=== PATIENT | female | born 1935 | race Caucasian/White ===

== ENCOUNTER 2017-01-03 09:33 | Inpatient (IN) | payer MEDICARE ==
[~2017-01-03] VITALS: Ht 165.1 cm; Wt 50.0 kg
[2017-01-03] MEDS ORDERED: FENTANYL PF 250 MCG/5ML ONE (12:58)
[2017-01-03] MEDS ORDERED: LACTATED RINGERS 1,000 ML IV SCH ×2 (13:58→14:03)
[2017-01-03] MEDS ORDERED: LIDOCAINE 1%, 2ML SQ PRN (14:00)
[2017-01-03] MEDS ORDERED: TRANEXAMIC ACID 100 MG/ML, 10ML ONE (14:05)
[2017-01-03] MEDS ORDERED: BUPIVACAINE/PF-EPI 0.25% 1:200K ONE (14:07)
[2017-01-03] MEDS ORDERED: LABETALOL 5MG/ML, 20ML IV PRN (14:30)
[2017-01-03] MEDS ORDERED: MEPERIDINE/PF 25MG/0.5ML IVPush PRN (14:30)
[2017-01-03] MEDS ORDERED: PROMETHAZINE 25 MG/ML, 1ML IV PRN (14:30)
[2017-01-03] MEDS ORDERED: ONDANSETRON 2MG/ML, 2ML IVPush PRN (14:30)
[2017-01-03] MEDS ORDERED: OXYcodone 5 MG/5 ML ORAL.SOL UDC PO PRN (14:30)
[2017-01-03] MEDS ORDERED: hydrALAzine 20 MG/ML, 1ML IV PRN (14:30)
[2017-01-03] MEDS ORDERED: AMLO5TAB4 PO (14:36)
[2017-01-03] MEDS ORDERED: SIMV40TA3 PO (14:36)
[2017-01-03] MEDS ORDERED: LIOT5TAB3 PO (14:36)
[2017-01-03] MEDS ORDERED: METO100T5 PO (14:36)
[2017-01-03] MEDS ORDERED: ENAL20TA PO (14:36)
[2017-01-03] MEDS ORDERED: RANI150C PO (14:36)
[2017-01-03] MEDS ORDERED: OMEP-110 PO (14:36)
[2017-01-03] MEDS ORDERED: LEVO75TA PO (14:36)
[2017-01-03 14:41] LABS: ASPARTATE AMINO TRANSFERASE 18 U/L (15-37); BLOOD UREA NITROGEN 21 mg/dL (7-18)
[2017-01-03] MEDS ORDERED: PROPOFOL 10 MG/ML, 20ML ONE (14:44)
[2017-01-03] MEDS ORDERED: GLYCOPYRROLATE 0.2MG/1ML ONE (14:44)
[2017-01-03] MEDS ORDERED: LABETALOL 5MG/ML 40ML VIAL ONE (14:44)
[2017-01-03] MEDS ORDERED: PHENYLEPHRINE 10 MG/ML ONE (14:44)
[2017-01-03] MEDS ORDERED: ROCURONIUM 10 MG/ML ONE (14:44)
[2017-01-03] MEDS ORDERED: NEOSTIGMINE 1 MG/ML, 10ML ONE (14:44)
[2017-01-03] MEDS ORDERED: CEFAZOLIN 1,000 MG ONE (14:44)
[2017-01-03] MEDS ORDERED: VANCOMYCIN 1,000 MG ONE ×2 (15:00→15:46)
[2017-01-03] MEDS: HYDROmorphone 1 MG/ML, 1ML IV PRN ×2 (16:30→16:47)
[2017-01-03] MEDS ORDERED: HYDROmorphone 2 MG/ML, 1ML ONE (16:39)
[2017-01-03] MEDS ORDERED: OXYcodone 5 MG/5 ML ORAL.SOL UDC ONE (16:39)
[2017-01-03] MEDS ORDERED: hydrALAzine 20 MG/ML, 1ML ONE (16:39)
[2017-01-03] MEDS ORDERED: FENTANYL PF 100 MCG/2ML ONE (17:08)
[2017-01-03] MEDS ORDERED: KETOROLAC 30 MG/1 ML ONE (17:08)
[2017-01-03] MEDS: FENTANYL PF 100 MCG/2ML IV PRN ×2 (17:11→17:17)
[2017-01-03] MEDS ORDERED: KETOROLAC 30 MG/1 ML IVPush ONE ×2 (17:30)
[2017-01-03] MEDS ORDERED: HYDROcodone/APAP 10/325 MG TABLET PO PRN (18:30)
[2017-01-03] MEDS ORDERED: CEFAZOLIN PMX 1GM/50ML 50 ML IVPB SCH (18:30)
[2017-01-03] MEDS ORDERED: LORazepam 2 MG/ML, 1ML IV PRN (18:30)
[2017-01-03] MEDS ORDERED: OXYcodone IR 5MG TABLET PO PRN (18:30)
[2017-01-03] MEDS ORDERED: PROMETHAZINE 25 MG/ML, 1ML IM PRN (18:30)
[2017-01-03] MEDS ORDERED: ALUMINUM/MAG/SIMETHICONE 30 ML UDC PO PRN (18:30)
[2017-01-03] MEDS ORDERED: BISACODYL 10 MG SUPP PR PRN (18:30)
[2017-01-03] MEDS ORDERED: morphine SULFATE 10 MG/ML, 1ML IV PRN (18:30)
[2017-01-03] MEDS ORDERED: ACETAMINOPHEN 325 MG TABLET PO PRN (18:30)
[2017-01-03] MEDS ORDERED: MAGNESIUM HYDROXIDE 8%, 30ML UDC PO PRN (18:30)
[2017-01-03] MEDS ORDERED: DIAZEPAM 5 MG TABLET PO PRN (18:30)
[2017-01-03] MEDS ORDERED: DIPHENHYDRAMINE 25 MG CAPSULE PO PRN (18:30)
[2017-01-03] MEDS ORDERED: ONDANSETRON 2MG/ML, 2ML IV PRN (18:30)
[2017-01-03] MEDS ORDERED: SENNA/DOCUSATE TABLET PO PRN (18:30)
[2017-01-03 19:38] VITALS: BP 139/75
[2017-01-03] MEDS: DOCUSATE 100 MG CAPSULE PO SCH (20:32)
[2017-01-03] MEDS: SODIUM CHLORIDE FLUSH 10ML SYR IVF SCH (20:32)
[2017-01-03] MEDS: POTASSIUM CHLORIDE 20 MEQ in D5%-0.45% NACL 1,000 ML IV SCH (20:32)
[2017-01-03] MEDS: SIMVASTATIN 40 MG TABLET PO SCH (20:33)
[2017-01-03] MEDS: FAMOTIDINE 20 MG TABLET PO SCH (20:33)
[2017-01-03] MEDS ORDERED: ZOLPIDEM 5MG TABLET PO PRN (21:00)
[2017-01-03] MEDS: CEFAZOLIN PMX 1GM/50ML 50 ML IVPB SCH (23:30)
[2017-01-03 23:32] VITALS: BP 137/85
[2017-01-04] MEDS ORDERED: KETOROLAC 30 MG/1 ML IV PRN (01:00)
[2017-01-04 04:07] VITALS: BP 136/72
[2017-01-04] MEDS: ASPIRIN 325 MG TABLET PO SCH ×3 (04:18→21:33)
[2017-01-04] MEDS: METOPROLOL SUCCINATE 100 MG TAB.ER.24H PO SCH (06:02)
[2017-01-04] MEDS: LEVOTHYROXINE 75 MCG TABLET PO SCH (06:02)
[2017-01-04] MEDS: CEFAZOLIN PMX 1GM/50ML 50 ML IVPB SCH (07:06)
[2017-01-04 07:15] VITALS: BP 123/73
[2017-01-04] MEDS: SODIUM CHLORIDE FLUSH 10ML SYR IVF SCH ×2 (07:17→21:34)
[2017-01-04] MEDS: ENALAPRIL 20MG TABLET PO SCH (07:33)
[2017-01-04] MEDS: DOCUSATE 100 MG CAPSULE PO SCH ×2 (07:33→21:34)
[2017-01-04] MEDS: OMEPRAZOLE 20 MG CAPSULE.DR PO SCH (07:34)
[2017-01-04] MEDS: LIOTHYRONINE 5 MCG TABLET PO SCH (07:34)
[2017-01-04] MEDS: AMLODIPINE 5 MG TABLET PO SCH (07:34)
[2017-01-04] MEDS: POTASSIUM CHLORIDE 20 MEQ in D5%-0.45% NACL 1,000 ML IV SCH (12:17)
[2017-01-04] MEDS: SULFAMETH./TRIMETHOPRIM DS 800MG/160MG TABLET PO SCH ×2 (14:31→21:34)
[2017-01-04 14:37] VITALS: BP 135/82
[2017-01-04 19:44] VITALS: BP 151/77
[2017-01-04] MEDS: FAMOTIDINE 20 MG TABLET PO SCH (21:34)
[2017-01-04] MEDS: SIMVASTATIN 40 MG TABLET PO SCH (21:34)
[2017-01-05] MEDS: POTASSIUM CHLORIDE 20 MEQ in D5%-0.45% NACL 1,000 ML IV SCH ×2 (01:47→16:23)
[2017-01-05 03:11] VITALS: BP 119/65
[2017-01-05] MEDS: LEVOTHYROXINE 75 MCG TABLET PO SCH (05:51)
[2017-01-05] MEDS: METOPROLOL SUCCINATE 100 MG TAB.ER.24H PO SCH (05:51)
[2017-01-05 06:52] VITALS: BP 109/57
[2017-01-05] MEDS: ASPIRIN 325 MG TABLET PO SCH ×2 (08:49→20:49)
[2017-01-05] MEDS: LIOTHYRONINE 5 MCG TABLET PO SCH (08:49)
[2017-01-05] MEDS: OMEPRAZOLE 20 MG CAPSULE.DR PO SCH (08:49)
[2017-01-05] MEDS: SULFAMETH./TRIMETHOPRIM DS 800MG/160MG TABLET PO SCH ×2 (08:49→20:50)
[2017-01-05] MEDS: DOCUSATE 100 MG CAPSULE PO SCH ×2 (08:49→20:49)
[2017-01-05] MEDS: AMLODIPINE 5 MG TABLET PO SCH (08:49)
[2017-01-05] MEDS: ENALAPRIL 20MG TABLET PO SCH (08:49)
[2017-01-05] MEDS: SODIUM CHLORIDE FLUSH 10ML SYR IVF SCH ×2 (09:00→21:26)
[2017-01-05 12:52] VITALS: BP 108/64
[2017-01-05 16:55] VITALS: BP 125/68
[2017-01-05 19:32] VITALS: BP 123/74
[2017-01-05] MEDS: FAMOTIDINE 20 MG TABLET PO SCH (20:50)
[2017-01-05] MEDS: SIMVASTATIN 40 MG TABLET PO SCH (20:51)
[2017-01-05] MEDS ORDERED: CEPH-368 PO (23:33)
[2017-01-05] MEDS ORDERED: HYDR-883 PO (23:37)
[2017-01-05] MEDS ORDERED: SULF1TAB24 PO (23:38)
[2017-01-06 01:22] VITALS: BP 123/63
[2017-01-06] MEDS: POTASSIUM CHLORIDE 20 MEQ in D5%-0.45% NACL 1,000 ML IV SCH (02:40)
[2017-01-06] MEDS: METOPROLOL SUCCINATE 100 MG TAB.ER.24H PO SCH (06:19)
[2017-01-06] MEDS: LEVOTHYROXINE 75 MCG TABLET PO SCH (06:19)
[2017-01-06 07:53] VITALS: BP 155/76
[2017-01-06] MEDS: OMEPRAZOLE 20 MG CAPSULE.DR PO SCH (07:59)
[2017-01-06] MEDS: SODIUM CHLORIDE FLUSH 10ML SYR IVF SCH (08:00)
[2017-01-06] MEDS: DOCUSATE 100 MG CAPSULE PO SCH (08:00)
[2017-01-06] MEDS: ASPIRIN 325 MG TABLET PO SCH (08:00)
[2017-01-06] MEDS: ENALAPRIL 20MG TABLET PO SCH (08:00)
[2017-01-06] MEDS: AMLODIPINE 5 MG TABLET PO SCH (08:00)
[2017-01-06] MEDS: LIOTHYRONINE 5 MCG TABLET PO SCH (08:00)
[2017-01-06] MEDS: SULFAMETH./TRIMETHOPRIM DS 800MG/160MG TABLET PO SCH (08:00)
[2017-01-06 12:00] VITALS: BP 118/68
== END 2017-01-06 12:58 | disposition home or self-care (01) | DRG 467 ==
LOC: ORIP 13:32 → 4NOR 17:44
PROVIDERS: ADMIT Orthopaedic Surgery Orthopaedic Surgery of the Spine; ATTEND Orthopaedic Surgery Orthopaedic Surgery of the Spine
PROC: 0SP90JZ Removal of Synthetic Substitute from Right Hip Joint, Open Approach (ICD-10-PCS; 2017-01-03)
PROC: 0SP909Z Removal of Liner from Right Hip Joint, Open Approach (ICD-10-PCS; 2017-01-03)
PROC: 0SUA09Z Supplement Right Hip Joint, Acetabular Surface with Liner, Open Approach (ICD-10-PCS; 2017-01-03)
PROC: 0SR902Z Replacement of Right Hip Joint with Metal on Polyethylene Synthetic Substitute, Open Approach (ICD-10-PCS; principal; 2017-01-03 15:00)
DX: T84.020A Dislocation of internal right hip prosthesis, initial encounter (principal); N39.0 Urinary tract infection, site not specified; Z68.1 Body mass index [BMI] 19.9 or less, adult; I10 Essential (primary) hypertension; E03.9 Hypothyroidism, unspecified
CPT/HCPCS: 36415; 80053; 85025; 86850; 86900; 93005; J0690; J1170; J1885; J2704; J2710; J3010; J3370; J3480; J3490; J0360; J2370; J7120; Q0163